=== PATIENT | male | born 1975 | race Caucasian/White ===

== ENCOUNTER 2017-08-05 14:25 | Emergency (ER) | payer SELFPAY ==
[2017-08-05 14:33] VITALS: BP 122/80
[2017-08-05] MEDS ORDERED: Tetracaine 0.5% OPTH.SOL 15ML* BTL ONE (15:48)
--- NOTE | 2017-08-05 16:21 | ED ---
Throat Pain/Nasal Congestion - HPI Summary HPI Summary: 41 male presents to ED from PCP with complaints of having a piece of metal in right eye that occurred yesterday around 1:30pm while working on his car. Patient denies any other complaints. Admits to pain and trouble opening the eye due to pain. Attempted to flush on own and again at PCP without relief. Told to come to ER. No other complaints. Given antibiotic drops at PCP today [employer]. No other PMHx. - History of Current Complaint Chief Complaint: EDEyeProblem Time Seen by Provider: 08/05/17 14:39 Hx Obtained From: Patient Onset/Duration: Sudden Onset, Still Present, Worse Since Severity: Severe Associated Signs And Symptoms: Positive: FB Sensation - right eye Cough: None - Allergies/Home Medications Allergies/Adverse Reactions: Allergies Allergy/AdvReac Type Severity Reaction Status Date / Time Pollen Extract Allergy Sneezing Verified 09/16/12 14:29 PMH/Surg Hx/FS Hx/Imm Hx Endocrine/Hematology History: Denies: Hx Anticoagulant Therapy, Hx Diabetes Cardiovascular History: Denies: Hx Hypertension, Hx Pacemaker/ICD Respiratory History: Denies: Hx Asthma Sensory History: Denies: Hx Hearing Aid Psychiatric History: Denies: Hx Panic Disorder - Surgical History Surgery Procedure, Year, and Place: n/a - Immunization History Immunizations Up to Date: Yes Infectious Disease History: No Infectious Disease History: Denies: Hx Hepatitis, Hx Human Immunodeficiency Virus (HIV), Hx Shingles, Hx Tuberculosis, Traveled Outside the [place] in Last 30 Days - Family History Known Family History: Positive: None - Social History Alcohol Use: Occasionally Substance Use Type: Reports: None Review of Systems Constitutional: Negative Positive: Photophobia, Blurred Vision - due to pain and unable to open eye from FB, Drainage, Other - FB ENT: Negative Cardiovascular: Negative Respiratory: Negative All Other Systems Reviewed And Are Negative: Yes Physical Exam Triage Information Reviewed: Yes Vital Signs On Initial Exam: Initial Vitals Temp Pulse Resp BP Pulse Ox 98.5 F 71 20 122/80 95 08/05/17 14:29 08/05/17 14:29 08/05/17 14:29 08/05/17 14:29 08/05/17 14:29 Vital Signs Reviewed: Yes Appearance: Positive: Well-Appearing, No Pain Distress, Well-Nourished Skin: Positive: Warm, Skin Color Reflects Adequate Perfusion, Dry. Negative: Cold, Cyanosis @, Pale, Erythema @ Head/Face: Positive: Normal Head/Face Inspection Eyes: Positive: EOMI, ABBEY, Conjunctiva Inflammed, Other: - erythematous and metal FB noted medial iris of cornea of right eye. appears to be imbedded. no rust ring appreciated. injected sclera, discharge tearing some yellow discharge. left eye normal ENT: Positive: Normal ENT inspection, Hearing grossly normal, Pharynx normal, TMs normal Neck: Positive: Supple, Nontender Respiratory/Lung Sounds: Positive: Clear to Auscultation, Breath Sounds Present. Negative: Rales, Rhonchi, Wheezes Cardiovascular: Positive: Normal, RRR, Pulses are Symmetrical in both Upper and Lower Extremities. Negative: Murmur, Rub Musculoskeletal: Positive: Normal, Strength/ROM Intact Neurological: Positive: Normal, Sensory/Motor Intact, Alert, Oriented to Person Place, Time, CN Intact II-III, Reflexes Intact, NV Bundle Intact Distally, Normal Gait Psychiatric: Positive: Affect/Mood Appropriate Procedures - Eye Procedure Alcaine Drops Administered: Yes Eye FB Removal: other - attempted removal with cotton swab and needle unable to remove Diagnostics - Vital Signs Vital Signs Temp Pulse Resp BP Pulse Ox 08/05/17 14:29 98.5 F 71 20 122/80 95 - Laboratory Lab Statement: Any lab studies that have been ordered have been reviewed, and results considered in the medical decision making process. EENT Course/Dx - Course Course Of Treatment: attempted removal of FB after anesthetic applied however unsuccessful. spoke with Dr Don who suggested to have him to come to his office for removal. no other complaints or concerns at this time. already has prescribed antibiotic drops. follow up optho and pcp. - Differential Diagnoses Differential Diagnoses: Conjunctivitis, Corneal Abrasion, Foreign Body - Diagnoses Provider Diagnoses: Foreign body, intraocular, right eye - Provider Notifications Discussed Care Of Patient With: Dr Don Time Discussed With Above Provider: 16:10 Instructed by Provider To: Send To Office Now Discharge - Discharge Plan Condition: Stable Disposition: HOME Referrals: Shelby Enriquez RN [Primary Care Provider] - Fred Don MD [Medical Doctor] - Additional Instructions: Please go straight to Dr Don's office to have FB removed.
== END 2017-08-05 16:33 | disposition home or self-care (01) ==
LOC: ED 14:25
DX: T15.81XA Foreign body in other and multiple parts of external eye, right eye, initial encounter (principal); X58.XXXA Exposure to other specified factors, initial encounter; Y92.9 Unspecified place or not applicable
CPT/HCPCS: 99282; A9270-GY